=== PATIENT | male | born 1965 | race Caucasian/White ===

== ENCOUNTER 2017-04-27 18:15 | Inpatient (IN) | payer BC, OTHER ==
[2017-04-27] MEDS ORDERED: HYDROmorphone HCL 1 MG/ML DISP.SYRIN IV ONE (18:28)
[2017-04-27] MEDS ORDERED: LEVOFLOXACIN/D5W 750 MG/150 ML BAG IV ONE (18:34)
[2017-04-27] MEDS ORDERED: metroNIDAZOLE/SODIUM CHLORIDE 500 MG/100 ML BAG IV ONE (18:34)
--- NOTE | 2017-04-27 18:37 | ERNOTE ---
Abdominal HPI - General Chief Complaint: Abdominal Pain Time Seen by Provider: 04/27/17 18:20 Source: patient Exam Limitations: no limitations - Immun/Allergies/Home Medications Immunizatons: IMMUNIZATION HX Immunizations Up to Date Yes History of Influenza Vaccine No Hx Pneumococcal Vaccination No Allergies/Adverse Reactions: Allergies Penicillins Allergy (Verified 04/27/17 18:33) Home Medications: HOME MEDICATIONS Gabapentin 300 mg PO QID 04/27/17 [Last Taken Unknown] Ibuprofen 800 mg PO BID 04/27/17 [Last Taken Unknown] Lisinopril [Zestril] 10 mg PO DAILY 04/27/17 [Last Taken Unknown] Omeprazole 20 mg PO DAILY 04/27/17 [Last Taken Unknown] Sildenafil Citrate [Revatio] 20 mg PO PRN 04/27/17 [Last Taken Unknown] - History of Present Illness Narrative: Patient started to have right lower abdominal pain at 03:00, no vomiting, no diarrhea. he was seen in the [facility], had a CT abdomen done and was diagnosed with acute appendicitis. Dr Christopher ([facility]) called around 16:[address] Villegas patient was accepted to our facility. Patient rates pain currently at 9/10 afer bumpy ride in the ambulance Review of Systems - Review of Systems Constitutional: Absent: recent illness, fever Respiratory: Absent: shortness of breath Cardiology: Absent: chest pain Gastrointestinal/Abdominal: Present: See HPI - Patient's Past Medical History Patient History - Medical: Alcohol Abuse - last drink december 2016, Diabetes Type 2 Patient History - Cardiac/Respiratory: Hypertension Patient History - Cancer: No Hx of Cancer Patient History - Surgical Procedures: Other, Orthopedic Patient History - Other: None - Social History Living Situations: alone Abuse History: Hx of Substance Use, Hx -Substance Use Tx Psych History: Hx of Anxiety, Hx of Depression Smoking Status: Current every day smoker Have you smoked in the past 12 months: Yes Do you dip or chew tobacco: No Alcohol Use: sober Drug Use: none - Immunizations Immunizations Up to Date: Yes Hx Pneumococcal Vaccination: No History of Influenza Vaccine: No Physical Exam - Physical Exam General Appearance: Present: wd/wn, alert, no apparent distress Respiratory: Present: no respiratory distress, normal breath sounds, no accessory muscle use, lungs clear Cardiovascular/Chest: Present: regular rate, rhythm, no murmur Gastrointestinal/Abdominal: Present: normal bowel sounds, tenderness, McBurney sign, Psoas sign. Absent: Obturator sign Neurological Exam: Present: alert, oriented, normal mood/affect Skin Exam: Present: normal color, warm/dry ED Progress - Results and Orders Patient's Lab Results:: I have reviewed the patient's lab results. - reviewed labs from [place] - Vital Signs Patient's Vital Signs:: I have reviewed the patient's vital signs. Vital Signs: Vital Signs 04/27/17 18:16 Temperature 37.6 C H Pulse Rate 98 Respiratory 15 Rate Blood Pressure 123/74 O2 Sat by Pulse 95 Oximetry - Progress/Reassessment Chief Complaint: Abdominal Pain Progress Note-Subjective: 04/27/17 18:[address] Villegas, will come see patient Departure Clinical Impression: Acute appendicitis Qualifiers: Acute appendicitis type: unspecified acute appendicitis type Qualified Code(s) : K35.80 - Unspecified acute appendicitis - Departure Disposition: [facility] Condition: Good Referrals: Aurelio Hyatt MD [Primary Care Provider] -
[2017-04-27] MEDS ORDERED: HYDROmorphone HCL 1 MG/ML DISP.SYRIN ONE (18:40)
--- NOTE | 2017-04-27 18:52 | HP ---
Chief Complaint - Chief Complaint Date of Service: 04/27/17 Time of Service: 18:44 Chief Complaint: RLQ abdominal pain History of Present Illness: Pt was awakened out of a sleep at 0300 with right flank pain that progressed throughout the day in severity causing him to present to the ER in [place]. Workup revealed a WBC of 20K and a CT of the abdomen consistent with early appendicitis. He was transfered to our facility for definitive surgical therapy. His ambulance transfer was highlighted by RLQ abdominal pain with every bump in the road and Dr. Diallo reports peritoneal signs in the RLQ. - Patient's Past Medical History Patient History - Medical: Diabetes Type 2 Patient History - Cardiac/Respiratory: Hypertension Patient History - Cancer: No Hx of Cancer Patient History - Surgical Procedures: Other Patient History - Other: None - Social History Living Situations: alone Abuse History: Hx of Substance Use, Hx -Substance Use Tx Psych History: Hx of Anxiety, Hx of Depression Smoking Status: Current every day smoker Have you smoked in the past 12 months: Yes Do you dip or chew tobacco: No Alcohol Use: other Drug Use: none - Immunizations Immunizations Up to Date: Yes Hx Pneumococcal Vaccination: No History of Influenza Vaccine: No Review Of Systems (GEN) - Review of Systems Endocrine: Present: Other - Patient recently discontinued his Metformin when a friend was reported to have kidney problems. Misc: All systems neg except as marked Immunizations: IMMUNIZATION HX Immunizations Up to Date Yes History of Influenza Vaccine No Hx Pneumococcal Vaccination No Allergies/Adverse Reactions: Allergies Allergy/AdvReac Type Severity Reaction Status Date / Time Penicillins Allergy Verified 04/27/17 18:33 Home Medications: HOME MEDICATIONS Gabapentin 300 mg PO QID 04/27/17 [Last Taken Unknown] Ibuprofen 800 mg PO BID 04/27/17 [Last Taken Unknown] Lisinopril [Zestril] 10 mg PO DAILY 04/27/17 [Last Taken Unknown] Omeprazole 20 mg PO DAILY 04/27/17 [Last Taken Unknown] Sildenafil Citrate [Revatio] 20 mg PO PRN 04/27/17 [Last Taken Unknown] Exam - Exam Vital Signs: Vital Signs - Last Taken Temp 37.6 C H 04/27/17 18:16 Pulse 98 04/27/17 18:16 Resp 15 04/27/17 18:16 BP 123/74 11/26/17 18:16 Pulse Ox 95 04/27/17 18:16 Constitutional: Present: Alert, Oriented x3, Cooperative, No distress ENT Exam: Present: normal ENT inspection Eye Exam: bilateral eye: normal inspection Neck: Present: normal inspection, trachea midline Respiratory: Present: lungs clear, normal breath sounds, no respiratory distress , no accessory muscle use Cardiovascular/Chest: Present: regular rate, rhythm, no murmur Abdomen: Present: tender - RLQ. No umbilical hernia noted. /Rectal: Present: Exam deferred Extremity: Present: normal range of motion Skin Exam: Present: normal color Neurologic: Present: no motor/sensory deficits Appearance: Present: appropriate appearance Eye contact: Present: cooperative, good eye contact Thoughts: Present: normal thought pattern Assessment/Plan - Assessment/Plan (1) Acute appendicitis with localized peritonitis Assessment: A: Acute appendicitis P: I recommend laparoscopic appendectomy. The options, risks, and benefits were reviewed fully. He seems to understand, asks appropriate questions, and desires to proceed. Problem: Acute
[2017-04-27] MEDS ORDERED: RINGER'S SOLUTION,LACTATED 1,000 ML IV ONE ×2 (19:35→20:35)
[2017-04-27] MEDS ORDERED: BUPIVACAINE HCL 50 ML VIAL IJ ONE ×2 (20:00)
--- NOTE | 2017-04-27 20:50 | OR ---
Operative Report - Dictated Report Narrative: Date: 04/27/2017 Preoperative diagnosis: Acute appendicitis Postoperative diagnosis: Typhlitis, normal appendix Procedure: Laparoscopic appendectomy and secectomy Staff surgeon: Benoit Villegas MD Anesthesia: GETA EBL: 5cc Specimen: appendix and cecum en-bloc Description: The patient was placed in the supine position and following the smooth induction of general endotracheal anesthesia Guerrero catheter was placed and SCD boots applied. The abdomen was prepped and draped in a sterile fashion. All port sites were anesthetized with Marcaine prior to incision. An 5 mm infraumbilical incision was carried out. The abdomen was entered under direct vision with a 5 mm blunt port with the scope within the lumen of the trocar. The abdomen was then insufflated to a pressure of 15 mmHg with carbon dioxide. Under direct vision a 12 mm suprapubic port and a lower midline 5 mm port were inserted. No purulence was encountered. The appendix was identified and elevated and appeared to be normal however there was an area of the cecum adjacent to the base of the appendix appeared to have focal necrosis. The mesoappendix was taken down with a thunderbeat. An Endo TIFFANY was taken across the base of the appendix and cecum to include the area of necrosis with care taken not to impinge upon the ileocecal valve. This was done with 3 successive firings of the Endo TIFFANY. The specimen was placed in an Endo Catch bag and delivered out through the suprapubic port. This port was returned to the abdominal cavity and inspection was carried out. Hemostasis appeared to be adequate. The pneumoperitoneum was evacuated. The ports were removed. Incisions were closed with subcuticular stitches of 4-0 Vicryl and sealed with Dermabond. The patient tolerated the procedure well without any apparent complications and was discharged from the operating room in stable condition.
[2017-04-27] MEDS ORDERED: ONDANSETRON HCL/PF 2 MG/ML VIAL IV PRN (20:51)
[2017-04-27] MEDS: oxyCODONE HCL/ACETAMINOPHEN 1 TAB TABLET PO PRN (21:59)
[2017-04-28] MEDS: oxyCODONE HCL/ACETAMINOPHEN 1 TAB TABLET PO PRN ×4 (02:17→15:03)
[2017-04-28] MEDS: RINGER'S SOLUTION,LACTATED 1,000 ML IV PRN ×3 (05:38→22:12)
[2017-04-28] MEDS: MORPHINE SULFATE 4 MG/ML SYRG IV PRN ×6 (07:31→17:51)
--- NOTE | 2017-04-28 08:37 | PN ---
Subjective - Date and Time Seen Date: 04/28/17 Time: 08:34 Subjective Narrative: POD1 Appendectomy/Cecectomy Taking fluids. No solids yet. Having ongoing pain. Asking for morphine. Objective Objective Narrative: No peritoneal signs. Abdomen soft, nondistended. Wounds OK. - Vitals Vitals: Last Vital Signs Temp 37.2 C 04/28/17 06:09 Pulse 95 04/28/17 06:09 Resp 20 04/28/17 06:09 BP 121/68 04/28/17 06:09 Pulse Ox 98 04/28/17 06:09 Assessment/Plan - Problems/Diagnosis (1) Acute appendicitis with localized peritonitis Problem: Ruled-out (2) Typhlitis Problem: Acute Narrative: Await path results. This unusual finding requires additional monitoring. He is having ongoing pain. Will convert to oral abx.
[2017-04-28] MEDS: metroNIDAZOLE 500 MG TABLET PO SCH ×2 (09:11→17:42)
[2017-04-28] MEDS: LEVOFLOXACIN 750 MG TABLET PO SCH (10:47)
[2017-04-28] MEDS: NICOTINE 21 MG PATC TD SCH (13:46)
[2017-04-28] MEDS: GABAPENTIN 300 MG CAPSULE PO SCH (13:46)
[2017-04-28] MEDS ORDERED: METOCLOPRAMIDE HCL 5 MG/ML VIAL IV PRN (21:17)
[2017-04-28] MEDS ORDERED: PANTOPRAZOLE SODIUM 40 MG in NORMAL SALINE 100 ML IV SCH (21:30)
[2017-04-28] MEDS ORDERED: NALOXONE HCL 1 MG/1 ML SYRG IV PRN (21:31)
[2017-04-28] MEDS ORDERED: diphenhydrAMINE HCL 50 MG/ML VIAL IV PRN (21:31)
[2017-04-28] MEDS: GABAPENTIN 600 MG TABLET PO SCH (22:00)
[2017-04-28] MEDS: HYDROmorphone HCL IN 0.9% NACL 50 ML CARTRIDGE IV PRN (22:37)
[2017-04-29] MEDS: metroNIDAZOLE 500 MG TABLET PO SCH ×3 (01:03→16:05)
[2017-04-29 05:51] LABS: Hematocrit 34.9 % (42.0-52.0); Hemoglobin 12.1 gm/dL (13.5-18.0); Mean Cell Volume 96.7 fl (78-100); Mean Corpuscular Hemoglobin 33.5 pg (27-31); Mean Corpuscular Hgb Conc 34.7 g/dl (32-36); Mean Platelet Volume 12.2 fl (6.0-9.5); Neutrophil # 7.4 K/mm3 (1.3-6.0); Neutrophil % 72.6 % (42-75.0); Platelet Count 103 K/mm3 (150-450); Red Blood Count 3.61 M/mm3 (4.7-6.0); Red Cell Distribution Width 12.2 % (11.5-14.0); White Blood Count 10.3 K/mm3 (4.0-10.5)
[2017-04-29 06:01] LABS: Anion Gap 9.2 mmol/L (6.8-13.8); BUN/Creatinine Ratio 10.7 (9.0-21.6); Calcium * 8.7 mg/dL (7.9-10.9); Carbon Dioxide 28.6 mmol/L (24-32.6); Estimated Creat Clear 119.6; Potassium 3.8 mmol/L (3.4-4.6)
[2017-04-29] MEDS: RINGER'S SOLUTION,LACTATED 1,000 ML IV PRN (06:26)
[2017-04-29] MEDS ORDERED: PANTOPRAZOLE SODIUM 20 MG TABLET.DR PO SCH (07:00)
[2017-04-29] MEDS: GABAPENTIN 600 MG TABLET PO SCH ×2 (07:00→13:46)
[2017-04-29] MEDS: GABAPENTIN 300 MG CAPSULE PO SCH (07:00)
[2017-04-29] MEDS ORDERED: LISINOPRIL 10 MG TABLET PO SCH (09:00)
[2017-04-29] MEDS: LEVOFLOXACIN 750 MG TABLET PO SCH (12:24)
--- NOTE | 2017-04-29 13:29 | PN ---
Dictated Progress Note - Date and Time Seen: Date: 04/29/17 Time: 13:25 - Progress Note Narrative: Vital Signs - Last Taken Temp 37.3 C 04/29/17 10:50 Pulse 97 04/29/17 10:50 Resp 20 04/29/17 10:50 BP 138/81 04/29/17 10:50 Pulse Ox 92 04/29/17 10:50 Abnormal/Pending Laboratory Last 24 HRS 04/29/17 04/29/17 05:35 05:35 RBC 3.61 L Hgb 12.1 L Hct 34.9 L MCH 33.5 H Plt Count 103 L MPV 12.2 H Lymphocytes % 17.5 L Neutrophils # 7.4 H Random Glucose 115 H POD #2 Laparoscopic appendectomy with inclusion of apex of cecum VS normal, tolerated po liquids and passed flattus. Incisions clean. Using ANIMAL CARE ATTENDANT frequently however appears comfortable. WBC to normal and path shows viable staple line. Will increase ANIMAL CARE ATTENDANT interval, KVO IV, advance diet, shower, encourage ambulation with goal of D/C later today.
[2017-04-29] MEDS: NICOTINE 21 MG PATC TD SCH (13:45)
[2017-04-29] MEDS: HYDROmorphone HCL IN 0.9% NACL 50 ML CARTRIDGE IV PRN (14:04)
[2017-04-29 15:28] VITALS: BP 125/78
--- NOTE | 2017-04-29 16:44 | DS ---
Description of Stay: Had laparoscopic appendectomy which included an area of necrotic cecum. VS remained normal, incisions appeared to be healing well. Tolerated advanced diet and was OOB independently. Pain controlled with COMPLIANCE LEAD and oral Percocet. Discharged on antibiotics for 5 additional days with office f/u 05/08/17 Procedures Performed: see notes below - laparoscopic appendectomy with included tip of cecum Results and Findings: Pathology showed acute and chronic appendicitis with an area of cecal necrosis and full thickness inflammation Discharge Disposition: Home self care Disposition: Home self-care Condition: Good Discharge Activity: Activity as tolerated, No Lifting Discharge Diet: Consistent carbs Referrals: Aurelio Hyatt MD [Primary Care Provider] - Problem Oriented Discharge Instructions to Patient/Family: Laparoscopic Appendectomy, Adult Additional Patient Instructions (free text): to call [phone] to arrange f/u appointment for 05/08/17 Complete Home Medications List: Complete Home Medication List: Gabapentin 1,200 mg PO TID 04/27/17 Ibuprofen 800 mg PO BID 04/27/17 Lisinopril [Zestril] 10 mg PO DAILY 04/27/17 Omeprazole 20 mg PO DAILY 04/27/17 Sildenafil Citrate [Revatio] 20 mg PO PRN 04/27/17 Levofloxacin [Levaquin] 750 mg PO DAILY@1100 7 Days #7 tablet 04/29/17 metroNIDAZOLE [Flagyl] 500 mg PO Q8H 7 Days #21 tablet 04/29/17 oxyCODONE HCL/ACETAMINOPHEN [Percocet 5 MG/325 MG] 2 tab PO QID PRN #30 tablet 04/29/17
== END 2017-04-29 17:54 | disposition home or self-care (01) | DRG 330 ==
LOC: ER 18:15 → AMB 19:39 → MS 21:11 → OBSVTOIN 04-28 08:38
PROVIDERS: ADMIT Specialist; ATTEND Specialist
PROC: 0DTJ4ZZ Resection of Appendix, Percutaneous Endoscopic Approach (ICD-10-PCS; 2017-04-27)
PROC: 0DBH4ZZ Excision of Cecum, Percutaneous Endoscopic Approach (ICD-10-PCS; principal; 2017-04-27 19:07)
DX: K55.049 Acute infarction of large intestine, extent unspecified (principal); K35.80 Unspecified acute appendicitis
CPT/HCPCS: 36415; 44204; 44970; 74020; 80048; 85025; 88304; 96365; 96375; 99284; G0378; J2405